=== PATIENT | female | born 1980 | race American Indian/Alaskan Native ===

== ENCOUNTER 2021-06-08 18:39 | Emergency (ER) | payer MEDICAID ==
[2021-06-08] MEDS ORDERED: KETOROLAC 10 MG TAB PO ONE (19:29)
[2021-06-08] MEDS ORDERED: ACETAMINOPHEN W/CODEINE 300-30 MG TAB PO ONE (19:30)
[2021-06-08] MEDS ORDERED: predniSONE 20 MG TAB PO ONE (19:30)
--- NOTE | 2021-06-08 20:06 | XRay Report ---
CHEST 2 VIEWS INDICATION / CLINICAL INFORMATION: chest pain. COMPARISON: None available. FINDINGS: SUPPORT DEVICES: None. HEART / MEDIASTINUM: No significant abnormality. LUNGS / PLEURA: No significant pulmonary abnormality. No significant pleural effusion. No pneumothora x. ADDITIONAL FINDINGS: No significant additional findings. IMPRESSION: 1. No acute abnormality of the chest. Signer Name: Chung Lowe MD Signed: 06/08/2021 8:01 PM Workstation Name: [id number]
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
[2021-06-08 21:23] VITALS: BP 140/78
== END 2021-06-08 21:23 | disposition home or self-care (01) ==
LOC: ED 18:39
DX: M25.571 Pain in right ankle and joints of right foot (principal); R07.89 Other chest pain; V89.2XXA Person injured in unspecified motor-vehicle accident, traffic, initial encounter; Y93.89 Activity, other specified; Y92.89 Other specified places as the place of occurrence of the external cause; Y99.8 Other external cause status
CPT/HCPCS: 71046; 99283